=== PATIENT | female | born 1995 | race African-American/Black ===

== ENCOUNTER 2021-11-04 19:15 | Emergency (ER) | payer SELFPAY ==
--- NOTE | 2021-11-04 20:35 | ER ---
Nurse's Notes [facility] Name: Tomas Taylor Age: 26 yrs Sex: Female : 1995 Arrival Date: 11/04/2021 Time: 19:18 Bed Waiting Private MD: Diagnosis: Dental Pain Presentation: 11/04 19:35 Chief complaint: Patient states: had her wisdom tooth removed on the L side 2 months sm5 ago, states she thinks there are pieces left because she has been having pain that started a few days ago. was supposed to be on antibiotics after sx and never took them. Coronavirus screen: Vaccine status: Patient reports being unvaccinated. Ebola Screen: No symptoms or risks identified at this time. Initial Sepsis Screen: Does the patient meet any 2 criteria? HR > 90 bpm. No. Patient's initial sepsis screen is negative. Does the patient have a suspected source of infection? No. Patient's initial sepsis screen is negative. Risk Assessment: Do you want to hurt yourself or someone else? Patient reports no desire to harm self or others. Onset of symptoms was November 01, 2021. 19:35 Method Of Arrival: Ambulatory 5 19:35 Acuity: NEISHA 4 5 Triage Assessment: 19:38 General: Appears in no apparent distress. Behavior is cooperative. Pain: Complains of 5 pain in tooth. EENT: Reports pain in tooth. Neuro: No deficits noted. Level of Consciousness is awake, alert, obeys commands, Oriented to person, place, time, situation. 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 - Social history:: Smoking status: Patient denies any tobacco usage or history of. Screenin:54 Abuse screen: Denies threats or abuse. Denies injuries from another. Nutritional sm5 screening: No deficits noted. Tuberculosis screening: No symptoms or risk factors identified. Fall Risk None identified. Assessment: 20:54 Reassessment: see triage assessment. 5 20:54 Reassessment: No changes from previously documented assessment. 5 Vital Signs: 19:35 BP 133 / 96; Pulse 110; Resp 18; Temp 98.2(TE); Pulse Ox 100% on R/A; Weight 81.19 kg; sm5 Height 5 ft. 3 in. (160.02 cm); Pain 8/10; 19:35 Body Mass Index 31.71 (81.19 kg, 160.02 cm) 5 ED Course: 19:18 Patient arrived in ED. rg4 19:37 Triage completed. 5 19:38 Arm band placed on right wrist. [facility] 19:42 Pernell Newberry PA is PHCP. [facility] 19:42 Kleber De Los Santos MD is Attending Physician. [facility] 20:34 Eliud Tripp DDS is Referral Physician. [facility] 20:54 Patient has correct armband on for positive identification. 5 20:54 No provider procedures requiring assistance completed. Patient did not have IV access 5 during this emergency room visit. Administered Medications: 20:53 Drug: [place] (HYDROcodone-acetaminophen) 10 mg-325 mg 1 tabs Route: PO; 5 Outcome: 20:35 Discharge ordered by MD. [facility] 20:55 Discharged to home ambulatory. [facility] 20:55 Condition: stable 20:55 Discharge instructions given to patient, Instructed on discharge instructions, follow up and referral plans. medication usage, Demonstrated understanding of instructions, follow-up care, medications, Prescriptions given X 2. 20:55 Patient left the ED. 5 Signatures: Pernell Newberry PA PA jmm Garcia, Rubi 4 Colette Vasquez RN RN [facility]
--- NOTE | 2021-11-04 20:35 | EDPHYS ---
Physician Documentation [facility] Name: Tomas Taylor Age: 26 yrs Sex: Female : 1995 Arrival Date: 11/04/2021 Time: 19:18 Bed Waiting Private MD: ED Physician Kleber De Los Santos HPI: 11/04 20:31 This 26 yrs old Black Female presents to ER via Ambulatory with complaints of Toothache.jmm 20:31 The patient presents with pain. Onset: The symptoms/episode began/occurred acutely, 1 jmm week(s) ago. Duration: The symptoms are continuous. Modifying factors: The symptoms are alleviated by nothing, the symptoms are aggravated by nothing. This is a 26 year old female with no chronic medical conditions that presents to the ED with complaints of left upper dental pain beginning after she states she chipped her tooth. Denies fever. . 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 - Social history:: Smoking status: Patient denies any tobacco usage or history of. ROS: 20:31 Constitutional: Negative for fever, chills, and weight loss, Cardiovascular: Negative jmm for chest pain, palpitations, and edema, Respiratory: Negative for shortness of breath, cough, wheezing, and pleuritic chest pain. 20:31 ENT: Positive for dental pain. 20:31 All other systems are negative. Exam: 20:31 Constitutional: This is a well developed, well nourished patient who is awake, alert, jmm and in no acute distress. Head/Face: atraumatic. Eyes: EOMI, no conjunctival erythema appreciated ENT: Moist Mucus Membranes Neck: Trachea midline, Supple Chest/axilla: Normal chest wall appearance and motion. Cardiovascular: Regular rate and rhythm. No edema appreciated Respiratory: Normal respirations, no respiratory distress appreciated Abdomen/GI: Non distended, soft Back: Normal ROM 20:31 Skin: General appearance color normal MS/ Extremity: Moves all extremities, no obvious deformities appreciated, no edema noted to the lower extremities Neuro: Awake and alert Psych: Behavior is normal, Mood is normal, Patient is cooperative and pleasant 20:31 ENT: Dental exam: dental caries, that is moderate, specifically in the upper left second molar (#15) and upper left third molar (#16). Vital Signs: 19:35 BP 133 / 96; Pulse 110; Resp 18; Temp 98.2(TE); Pulse Ox 100% on R/A; Weight 81.19 kg; 5 Height 5 ft. 3 in. (160.02 cm); Pain 8/10; 19:35 Body Mass Index 31.71 (81.19 kg, 160.02 cm) [facility] MDM: 20:34 Data reviewed: vital signs, nurses notes. Counseling: I had a detailed discussion with [facility] the patient and/or guardian regarding: the historical points, exam findings, and any diagnostic results supporting the discharge/admit diagnosis, the need for outpatient follow up, to return to the emergency department if symptoms worsen or persist or if there are any questions or concerns that arise at home. 20:35 Patient medically screened. [facility] Administered Medications: 20:53 Drug: [place] (HYDROcodone-acetaminophen) 10 mg-325 mg 1 tabs Route: PO; 5 Disposition: 11/05 19:51 Co-signature as Attending Physician, Kleber De Los Santos MD I agree with the assessment and kdr plan of care. Disposition Summary: 11/04/21 20:35 Discharge Ordered Location: Home [facility] Condition: Stable [facility] Diagnosis - Dental Pain [facility] Followup: [facility] - With: Eliud Tripp DDS - When: 2 - 3 days - Reason: Recheck today's complaints, Continuance of care, Re-evaluation by your physician Discharge Instructions: - Discharge Summary Sheet [facility] - Dental Pain [facility] Forms: - Medication Reconciliation Form [facility] - Thank You Letter [facility] - Antibiotic Education [facility] - Prescription Opioid Use [facility] Prescriptions: - Diclofenac Sodium 75 mg Oral Tablet Sustained Release - take 1 tablet by ORAL route 2 times per day; 30 tablet; Refills: 0, Product [facility] Selection Permitted - Amoxicillin 875 mg Oral Tablet - take 1 tablet by ORAL route every 12 hours for 10 days; 20 tablet; Refills: 0, [facility] Product Selection Permitted Signatures: Kleber De Los Santos MD MD kdr Mickail, Joel, PA PA jm Christina, Colette, RN RN sm5
[2021-11-04] MEDS ORDERED: HYDROCODONE/APAP 10/325 TAB ONE (20:55)
[2021-11-04 20:59] VITALS: BP 133/96; TEMP 98.2; O2SAT 100
== END 2021-11-04 20:55 | disposition home or self-care (01) ==
LOC: ER 19:15
DX: K08.89 Other specified disorders of teeth and supporting structures (principal); K02.9 Dental caries, unspecified
CPT/HCPCS: 99283

== ENCOUNTER 2021-11-09 23:55 | Emergency (ER) | payer SELFPAY ==
[2021-11-10] MEDS ORDERED: HYDROCODONE/APAP 5/325 MG TAB ONE (01:32)
--- NOTE | 2021-11-10 01:38 | ER ---
Nurse's Notes [facility] Name: Tomas Taylor Age: 26 yrs Sex: Female : 1995 Arrival Date: 11/09/2021 Time: 23:59 Bed 10 Private MD: Diagnosis: Dental caries, unspecified;Cracked tooth Presentation: 11/10 00:08 Chief complaint: Patient states: States "I was here 3 days ago for the same thing and ll3 the pain medicine I was prescribed is not helping", c/o of upper and lower left molar pain, 02/21. Coronavirus screen: Vaccine status: Patient reports being unvaccinated. At this time, the client does not indicate any symptoms associated with coronavirus-19. Ebola Screen: No symptoms or risks identified at this time. Initial Sepsis Screen: Does the patient meet any 2 criteria? No. Patient's initial sepsis screen is negative. Does the patient have a suspected source of infection? No. Patient's initial sepsis screen is negative. Risk Assessment: Do you want to hurt yourself or someone else? Patient reports no desire to harm self or others. Onset of symptoms was November 05, 2021. Care prior to arrival: Medication(s) given: Diclofenac 75 mg at 8 PM. 00:08 Method Of Arrival: Ambulatory ll3 00:08 Acuity: NEISHA 4 ll3 Triage Assessment: 00:16 General: Appears uncomfortable, Behavior is calm, cooperative. Pain: Complains of pain ll3 in upper left second molar and lower left second molar Pain currently is 8 out of 10 on a pain scale. EENT: Reports pain in upper left second molar and lower left second molar. 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 - Social history:: Smoking status: Patient denies any tobacco usage or history of. Screenin:19 Abuse screen: Denies threats or abuse. Denies injuries from another. Nutritional tw5 screening: No deficits noted. Tuberculosis screening: No symptoms or risk factors identified. Fall Risk None identified. Assessment: 01:19 Pain: Denies pain. Complains of pain in upper left second molar and upper left third tw5 molar Pain currently is 7 out of 10 on a pain scale. EENT: Poor dentition noted. Dental caries noted in upper left second molar (#15) and upper left third molar (#16). 01:19 General: Reports "I was here just a couple of days ago for the same thing but the pain tw5 medication isn't helping and it is giving me a headache. Can I have anything stronger?". 01:21 General: Community resources provided to patient. . tw5 Vital Signs: 00:08 BP 119 / 85; Pulse 88; Resp 16; Temp 98.1(TE); Pulse Ox 99% on R/A; Weight 81.19 kg ll3 (R); Height 5 ft. 3 in. (160.02 cm) (R); Pain 8/10; 01:43 Pain 3/10; tw5 00:08 Body Mass Index 31.71 (81.19 kg, 160.02 cm) ll3 ED Course: 11/09 23:59 Patient arrived in ED. kz 11/10 00:16 Triage completed. ll3 00:18 Arm band placed on right wrist. ll3 00:34 Veronica Flowers is Primary Nurse. tw5 00:53 Tim Paredes MD is Attending Physician. mh7 01:19 Awaiting ED provider evaluation. tw5 01:19 No provider procedures requiring assistance completed. Patient did not have IV access tw5 during this emergency room visit. 01:36 Gumaro Ruvalcaba DDS is Referral Physician. mh7 01:43 Patient has correct armband on for positive identification. tw5 Administered Medications: 01:32 Drug: [place] (HYDROcodone-acetaminophen) 5 mg-325 mg 1 tabs Route: PO; tw5 01:43 Follow up: Pain 3/10 Adult; Response: No adverse reaction; Pain is decreased tw5 Outcome: 01:37 Discharge ordered by . mh7 01:43 Discharged to home ambulatory. tw5 01:43 Condition: good 01:43 Discharge instructions given to patient, Instructed on discharge instructions, follow up and referral plans. Demonstrated understanding of instructions, follow-up care, medications, Prescriptions given X 1. 01:43 Patient left the ED. tw5 Signatures: Tim Paredes MD MD 7 Veronica Flowers tw5 Toro Jesus RN RN ll3 Fatmata Arteaga Corrections: (The following items were deleted from the chart) 00:17 00:16 PSHx: Unable to Obtain; ll3 3
--- NOTE | 2021-11-10 01:38 | EDPHYS ---
Physician Documentation [facility] Name: Tomas Taylor Age: 26 yrs Sex: Female : 1995 Arrival Date: 11/09/2021 Time: 23:59 Bed 10 Private MD: ED Physician Tim Paredes HPI: 11/10 01:29 This 26 yrs old Black Female presents to ER via Ambulatory with complaints of Toothache.mh7 01:29 The patient presents with pain. The problem is located in the left upper and lower mh7 tooth. Onset: The symptoms/episode began/occurred 3 day(s) ago. Duration: The symptoms are continuous, and are unchanged since they started. Modifying factors: The symptoms are alleviated by nothing, the symptoms are aggravated by chewing, cold fluids. Associated signs and symptoms: Pertinent negatives: anorexia, chills, dysphagia, fever, inability to eat, nausea, redness in area, swelling, vomiting. Severity of symptoms: At their worst the symptoms were moderate, last night, in the emergency department the symptoms are unchanged. The patient has been recently seen at the [facility], this week. 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 - Social history:: Smoking status: Patient denies any tobacco usage or history of. ROS: 01:29 Constitutional: Negative for fever, chills, and weight loss, Eyes: Negative for injury, mh7 pain, redness, and discharge, Neck: Negative for injury, pain, and swelling, Cardiovascular: Negative for chest pain, palpitations, and edema, Respiratory: Negative for shortness of breath, cough, wheezing, and pleuritic chest pain, Abdomen/GI: Negative for abdominal pain, nausea, vomiting, diarrhea, and constipation, Back: Negative for injury and pain, : Negative for injury, bleeding, discharge, and swelling, MS/Extremity: Negative for injury and deformity, Skin: Negative for injury, rash, and discoloration, Neuro: Negative for headache, weakness, numbness, tingling, and seizure, Psych: Negative for depression, anxiety, suicide ideation, homicidal ideation, and hallucinations, Allergy/Immunology: Negative for hives, rash, and allergies, Endocrine: Negative for neck swelling, polydipsia, polyuria, polyphagia, and marked weight changes, Hematologic/Lymphatic: Negative for swollen nodes, abnormal bleeding, and unusual bruising. Exam: 01:29 Head/Face: Normocephalic, atraumatic. Eyes: Pupils equal round and reactive to light, mh7 extra-ocular motions intact. Lids and lashes normal. Conjunctiva and sclera are non-icteric and not injected. Cornea within normal limits. Periorbital areas with no swelling, redness, or edema. 01:29 Neck: Trachea midline, no thyromegaly or masses palpated, and no cervical lymphadenopathy. Supple, full range of motion without nuchal rigidity, or vertebral point tenderness. No Meningismus. Chest/axilla: Normal chest wall appearance and motion. Nontender with no deformity. No lesions are appreciated. Cardiovascular: Regular rate and rhythm with a normal S1 and S2. No gallops, murmurs, or rubs. Normal PMI, no JVD. No pulse deficits. Respiratory: Lungs have equal breath sounds bilaterally, clear to auscultation and percussion. No rales, rhonchi or wheezes noted. No increased work of breathing, no retractions or nasal flaring. Abdomen/GI: Soft, non-tender, with normal bowel sounds. No distension or tympany. No guarding or rebound. No evidence of tenderness throughout. Back: No spinal tenderness. No costovertebral tenderness. Full range of motion. Skin: Warm, dry with normal turgor. Normal color with no rashes, no lesions, and no evidence of cellulitis. MS/ Extremity: Pulses equal, no cyanosis. Neurovascular intact. Full, normal range of motion. Neuro: Awake and alert, GCS 15, oriented to person, place, time, and situation. Cranial nerves II-XII grossly intact. Motor strength 5/5 in all extremities. Sensory grossly intact. Cerebellar exam normal. Normal gait. Psych: Awake, alert, with orientation to person, place and time. Behavior, mood, and affect are within normal limits. 01:29 Constitutional: The patient appears in no acute distress, alert, awake, uncomfortable. 01:29 ENT: Mouth: is normal, Posterior pharynx: is normal, airway is patent, Dental exam: dental caries, that is moderate, diffusely, specifically in the lower right second bicuspid (#29), lower right first molar (#30) and lower right second molar (#31), fractured teeth are noted, specifically the upper left third molar (#16), Voice: is normal, Breath odor: is normal. Vital Signs: 00:08 BP 119 / 85; Pulse 88; Resp 16; Temp 98.1(TE); Pulse Ox 99% on R/A; Weight 81.19 kg ll3 (R); Height 5 ft. 3 in. (160.02 cm) (R); Pain 8/10; 01:43 Pain 3/10; tw5 00:08 Body Mass Index 31.71 (81.19 kg, 160.02 cm) ll3 MDM: 01:35 Differential diagnosis: dental caries, gingivitis, dental abscess, pericoronitis, mh7 aphthous ulcers, acute necrotizing ulcerative gingivitis, gingivostomatitis. Data reviewed: vital signs, nurses notes, old medical records. Data interpreted: Pulse oximetry: on room air is 99 %. Interpretation: normal. Counseling: I had a detailed discussion with the patient and/or guardian regarding: the historical points, exam findings, and any diagnostic results supporting the discharge/admit diagnosis, the need for outpatient follow up, a dentist, to return to the emergency department if symptoms worsen or persist or if there are any questions or concerns that arise at home. Response to treatment: the patient's symptoms have markedly improved after treatment. 01:37 Patient medically screened. [facility] Administered Medications: 01:32 Drug: [place] (HYDROcodone-acetaminophen) 5 mg-325 mg 1 tabs Route: PO; tw5 01:43 Follow up: Pain 3/10 Adult; Response: No adverse reaction; Pain is decreased tw5 Disposition Summary: 11/10/21 01:37 Discharge Ordered Location: Home [facility] Problem: [facility] Symptoms: have improved mh Condition: Stable mh Diagnosis - Dental caries, unspecified mh7 - Cracked tooth mh7 Followup: [facility] - With: Private Physician - When: 1 - 2 days - Reason: Worsening of condition, Recheck today's complaints, Continuance of care, Re-evaluation by your physician Followup: [facility] - With: Gumaro Ruvalcaba DDS - When: 1 - 2 days - Reason: Worsening of condition, Recheck today's complaints Discharge Instructions: - Discharge Summary Sheet [facility] - Dental Pain, [id number] [facility] - Dental Caries, Adult, [id number] [facility] Forms: - Medication Reconciliation Form [facility] - Thank You Letter [facility] - Antibiotic Education [facility] - Prescription Opioid Use [facility] Prescriptions: - Tramadol 50 mg Oral Tablet - take 1 tablet by ORAL route every 8 hours as needed; 12 tablet; Refills: 0, 7 Product Selection Permitted Signatures: Tim Paredes MD MD 7 Veronica Flowers [facility] Toro Jesus RN RN ll3 Corrections: (The following items were deleted from the chart) 00:17 00:16 PSHx: Unable to Obtain; ll3 ll3
[2021-11-10 04:16] VITALS: BP 119/85; TEMP 98.1; O2SAT 99
== END 2021-11-10 01:43 | disposition home or self-care (01) ==
LOC: ER 23:55
DX: K02.9 Dental caries, unspecified (principal); K03.81 Cracked tooth
CPT/HCPCS: 99283